=== PATIENT | female | born 1940 | race Caucasian/White ===

== ENCOUNTER 2017-03-31 13:00 | Emergency (ER) | payer MEDICARE, OTHER ==
[2017-03-31 13:01] VITALS: BMI 30.4
[2017-03-31 13:07] VITALS: TEMP 97.9
[2017-03-31] MEDS ORDERED: Oxycodone/Acetaminophen 5/325 mg Tab PO STA (13:44)
[2017-03-31] MEDS ORDERED: Oxycodone/Acetaminophen 5/325 mg Tab ONE (13:48)
[2017-03-31 13:52] LABS: RBC URINE 6 /hpf (0-3); URINE BILIRUBIN NEGATIVE (NEGATIVE); URINE BLOOD NEGATIVE (NEGATIVE); URINE COLOR Yellow (YELLOW); URINE GLUCOSE (UA) NORMAL (Normal); URINE KETONE NEGATIVE (NEGATIVE); URINE LEUKOCYTE ESTERASE 3+ Leu/uL (Negative); URINE PROTEIN NEGATIVE (NEGATIVE); URINE UROBILINOGEN NORMAL mg/dL (0.2-1.0); WBC URINE 9 /hpf (0-5)
--- NOTE | 2017-03-31 13:58 | C.PDOC ---
History Of Present Illness 77 yo female w/PMHx of generalized OA, HTN come in for evaluation of generalized joints pain and myalgia gradually developed for past few days. Pt c/ o, " most of pain over my B/L elbows and knees, and lower back". Pt admits, similar sx in past. Pt takes anti-inflammatory " that I was given at [place] and Tylenol without significant improvement". Otherwise, pt denies fever, chills, recent illness, severe headache, dizziness, visual changes, focal deficits, neck pain, drooling, CP, SOB, dyspnea, diaphoresis, palpitation, abd. pain, V/D, UTI sx, saddle anesthesia, denies weakness, sensory or vascular deficits to B/L LEs, denies redness, warmth or skin changes over joints. Ambulate to ED for evaluation, not in any apparent distress. Time Seen by Provider: 03/31/17 13:22 Chief Complaint (Nursing): Lower Extremity Problem/Injury History Per: Patient Onset/Duration Of Symptoms: Gradual Current Symptoms Are (Timing): Still Present Past Medical History Reviewed: Historical Data, Nursing Documentation, Vital Signs Vital Signs: Last Vital Signs Temp 97.9 F 03/31/17 13:04 Pulse 67 03/31/17 13:04 Resp 20 03/31/17 13:04 BP 175/100 H 03/31/17 13:04 Pulse Ox 99 03/31/17 13:58 - Medical History PMH: Arthritis, Back Problems, HTN Surgical History: Cholecystectomy Family History: States: No Known Family Hx - Social History Hx Alcohol Use: No Hx Substance Use: No - Immunization History Hx Tetanus Toxoid Vaccination: Yes Hx Influenza Vaccination: No Hx Pneumococcal Vaccination: Yes Review Of Systems Except As Marked, All Systems Reviewed And Found Negative. Constitutional: Negative for: Fever, Chills Eyes: Negative for: Vision Change ENT: Negative for: Throat Pain Cardiovascular: Negative for: Chest Pain, Palpitations, Edema, Light Headedness Respiratory: Negative for: Cough, Shortness of Breath, Hemoptysis Gastrointestinal: Negative for: Nausea, Vomiting, Abdominal Pain Genitourinary: Negative for: Dysuria, Incontinence Musculoskeletal: Positive for: Back Pain, Other (generaliez joints and muscle aches). Negative for: Neck Pain Skin: Negative for: Rash, Lesions, Bruising Neurological: Negative for: Weakness, Numbness, Altered Mental Status, Headache , Dizziness Physical Exam - Physical Exam Appears: Well, Non-toxic, No Acute Distress Skin: Normal Color, Warm, Dry, No Rash, No Ecchymosis Eye(s): bilateral: PERRL Oral Mucosa: Moist Throat: No Erythema, No Exudate, No Drooling Neck: Trachea Midline, Supple Cardiovascular: Rhythm Regular Respiratory: No Decreased Breath Sounds, No Accessory Muscle Use, No Stridor, No Wheezing Gastrointestinal/Abdominal: Soft, No Tenderness, No Distention, No Guarding Back: No CVA Tenderness, No Vertebral Tenderness Extremity: Normal ROM, Tenderness (mild diffuse tenderness over B/L olecranons. Mild tenderness Left posterior knee. No evidence erythema or warmth over the joints. FAROM, no neurovascular deficits.), No Pedal Edema, No Calf Tenderness ( B/L), Capillary Refill (less than 2sec to B/L UEs and LEs.), No Deformity, No Swelling Neurological/Psych: Oriented x3, Normal Speech, Normal Motor, Normal Sensation, Normal Reflexes ED Course And Treatment O2 Sat by Pulse Oximetry: 99 Pulse Ox Interpretation: Normal Progress Note: On re-eavluation, pt is afebrile, hemodynamicaly stable. Non- toxic. Ambulatory in ED with stable gait. PUlseOx 99% RA. Neck: supple, (-) JVD or carotid bruits. ENT: no acute findings. ABd: benign, (-) guarding or rebound. Back: (-) CVA tenderness. Neurologicaly intact. UA results review and c/w UTI. Pt has clinical findings c/w arthralgia hx of OA, UTI. Pt advised and ref. to f/u with PMD in 2-3 days for re-eval and further pain control. Disposition Counseled Patient/Family Regarding: Studies Performed, Diagnosis, Need For Followup, Rx Given - Disposition Referrals: [facility] [Outside] Disposition: HOME/ ROUTINE Disposition Time: 14:01 Condition: STABLE Additional Instructions: Take medication as prescribed Follow up with PMD in 2-3 days for re-evaluation. Return to ED if any worsening or new changes. Prescriptions: Nitrofurantoin Macrocrystals [Macrobid] 1 cap PO BID #14 cap Prednisone [Deltasone] 40 mg PO DAILY #6 tablet traMADol [Ultram] 50 mg PO TID #7 tab Instructions: Osteoarthritis (ED), Urinary Tract Infection in Women (ED) - Clinical Impression Clinical Impression: Arthritis, UTI (urinary tract infection)
[2017-03-31 14:51] VITALS: BP 158/79; PULSE 85; RESP 18; O2SAT 97
== END 2017-03-31 14:52 | disposition home or self-care (01) ==
LOC: C.ER 13:00
DX: N39.0 Urinary tract infection, site not specified (principal); M15.9 Polyosteoarthritis, unspecified
CPT/HCPCS: 81001; 96372; 99284; J1885